=== PATIENT | female | born 1930 | race Caucasian/White ===

== ENCOUNTER 2017-02-07 17:15 | Emergency (ER) | payer MEDICARE, BC ==
[~2017-02-07] VITALS: Ht 172.7 cm; Wt 74.8 kg
--- NOTE | 2017-02-07 17:35 | NUR ---
DR FARIAS AT THE BEDSIDE FOR EVAL AND EXAM.
[2017-02-07 18:09] LABS: BASOPHILS # (AUTO) 0.2 K/uL (0.0-8.0); BASOPHILS % (AUTO) 1.2 % (0.0-2.0); EOSINOPHILS % (AUTO) 0.3 % (0.0-7.0); HEMATOCRIT 40.2 % (37-47); HEMOGLOBIN 13.3 G/DL (12.0-16.0); LYMPHOCYTES % (AUTO) 6.4 % (20.5-51.5); MEAN CORPUSCULAR HEMOGLOBIN 30.8 UUG (27.0-31.0); MEAN CORPUSCULAR HGB CONC 33 g/dL (32.0-37.0); MEAN CORPUSCULAR VOLUME 93.2 FL (81.0-99.0); MONOCYTES # (AUTO) 1.4 K/UL (0.1-1.30); MONOCYTES % (AUTO) 8.6 % (0.0-11.0); NEUTROPHILS # (AUTO) 13.5 K/UL (1.8-8.9); NEUTROPHILS % (AUTO) 83.5 % (38.5-71.5); PLATELET COUNT (AUTO) 170 K/UL (150-450); RED BLOOD CELL COUNT(AUTO) 4.31 MIL/UL (4.2-5.4); WHITE BLOOD COUNT (AUTO) 16.1 K/UL (4.0-11.2)
[2017-02-07 18:19] LABS: CARBON DIOXIDE 28 mmol/L (21-32); CHLORIDE 103 mmol/L (98-107); CREATININE 1.2 mg/dL (0.6-1.3); GLUCOSE 101 mg/dL (74-106); POTASSIUM 3.8 mmol/L (3.5-5.1); UREA NITROGEN, BLOOD 18 mg/dL (7-18)
[2017-02-07 18:36] LABS: ALANINE AMINOTRANSFERASE 15 U/L (14-59); ALKALINE PHOSPHATASE 68 U/L (50-136); ASPARTATE AMINOTRANSFERASE 18 U/L (15-37); BAND % (MANUAL) 3 % (0-10); BILIRUBIN,DIRECT 0.3 mg/dL (0.0-0.2); BILIRUBIN,TOTAL 1.4 mg/dL (0.2-1.0); LYMPHOCYTES % (MANUAL) 5 % (20-40); MONOCYTES % (MANUAL) 4 % (2-10); NEUTROPHILS % (MANUAL) 88 % (42-75); TOTAL PROTEIN, SERUM 7.1 g/dL (6.4-8.2)
[2017-02-07] MEDS ORDERED: LEVO125T8 PO (18:41)
[2017-02-07] MEDS ORDERED: ATEN25TA PO (18:41)
[2017-02-07] MEDS ORDERED: RIVA15TA2 PO (18:41)
--- NOTE | 2017-02-07 19:00 | NUR ---
DR CASTILLO INTO RE EVAL PATIENT. PATIENT REQUESTING TO BE D/C'ED HOME
--- NOTE | 2017-02-07 19:27 | NUR ---
IV removed. Catheter intact and site benign. Pressure and 4x4 gauze applied to site. No bleeding noted.
--- NOTE | 2017-02-07 19:42 | NUR ---
Patient discharged to home in stable conditon WITH SON TAKING PATIENT HOME. Written and verbal after care instructions given. Patient verbalizes understanding of instructions. WALKED OUT OF ER WITH NO DISTRESS NOTED
[2017-02-07 19:43] VITALS: BP 125/70
== END 2017-02-07 19:45 | disposition home or self-care (01) ==
LOC: ER 17:16
DX: I48.2 Chronic atrial fibrillation (principal); J02.9 Acute pharyngitis, unspecified; R94.31 Abnormal electrocardiogram [ECG] [EKG]; I10 Essential (primary) hypertension; Z79.01 Long term (current) use of anticoagulants; E03.9 Hypothyroidism, unspecified
CPT/HCPCS: 36415; 70030-TC; 71010; 83605; 85025; 85730; 87040; 87400; 93005; A4663; J2930; J7030

== ENCOUNTER 2017-02-10 09:22 | Inpatient (IN) | payer MEDICARE, BC ==
[~2017-02-10] VITALS: Ht 174 cm; Wt 83.5 kg
[~2017-02-10 09:22] MED LIST: ATEN25TA PO; LEVO125T8 PO; RIVA15TA2 PO
[2017-02-10] MEDS ORDERED: IV NORMAL SALINE 500 ML BAG IV ONE (09:45)
[2017-02-10] MEDS ORDERED: PRED20TA PO (09:46)
[2017-02-10] MEDS ORDERED: LOSARTAN POTASSIUM PO (09:46)
[2017-02-10 10:11] LABS: BASOPHILS % (AUTO) 0.1 % (0.0-2.0); EOSINOPHILS % (AUTO) 0.1 % (0.0-7.0); HEMATOCRIT 41.1 % (31.2-41.9); HEMOGLOBIN 13.9 g/dL (10.9-14.3); LYMPHOCYTES # (AUTO) 0.7 K/uL (20.0-40.0); LYMPHOCYTES % (AUTO) 4.2 % (20.5-51.5); MEAN CORPUSCULAR HEMOGLOBIN 31.4 uug (24.7-32.8); MEAN CORPUSCULAR HGB CONC 34 g/dL (32.3-35.6); MEAN CORPUSCULAR VOLUME 93.1 fL (75.5-95.3); MONOCYTES # (AUTO) 1.6 K/uL (2.0-10.0); MONOCYTES % (AUTO) 9.9 % (0.0-11.0); NEUTROPHILS # (AUTO) 13.8 K/uL (1.8-8.9); NEUTROPHILS % (AUTO) 85.7 % (38.5-71.5); PLATELET COUNT (AUTO) 251 K/uL (179-408); RED BLOOD CELL COUNT(AUTO) 4.42 MIL/uL (3.63-4.92); WHITE BLOOD COUNT (AUTO) 16.1 K/uL (3.8-11.8)
[2017-02-10 10:18] LABS: CARBON DIOXIDE 28 mmol/L (21-32); CHLORIDE 105 mmol/L (98-107); CREATININE 1.1 mg/dL (0.6-1.3); GLUCOSE 97 mg/dL (74-106); POTASSIUM 3.9 mmol/L (3.5-5.1); UREA NITROGEN, BLOOD 22 mg/dL (7-18)
[2017-02-10 10:36] LABS: ALANINE AMINOTRANSFERASE 29 U/L (14-59); ALKALINE PHOSPHATASE 77 U/L (50-136); ASPARTATE AMINOTRANSFERASE 22 U/L (15-37); BILIRUBIN,DIRECT 0.2 mg/dL (0.0-0.2)
[2017-02-10] MEDS ORDERED: CEFTRIAXONE 1 G in IV DEXTROSE 5% 50 ML IV ONE (10:45)
[2017-02-10] MEDS ORDERED: AZITHROMYCIN IV 500 MG in IV DEXTROSE 5% 250 ML IV ONE (10:45)
--- NOTE | 2017-02-10 11:39 | NUR ---
Patient is eating snacks with good appetite. ALLEY Luo is at bedside evaluating the patient. Patient's daughter is at bedside as well.
--- NOTE | 2017-02-10 11:45 | NUR ---
Patient is tolerating 100ml/hr rate better for IV azithromycin instead of 250ml/hr (c/o increasing generalized aches and weakness earlier)
[2017-02-10 11:46] LABS: BAND % (MANUAL) 6 % (0-10); LYMPHOCYTES % (MANUAL) 3 % (20-40); MONOCYTES % (MANUAL) 9 % (2-10); NEUTROPHILS % (MANUAL) 82 % (42-75)
[2017-02-10] MEDS ORDERED: LEVOFLOXACIN 750MG/D5W 750 MG in PREMIXED 1 EACH IV SCH (12:00)
[2017-02-10] MEDS ORDERED: ALBUTEROL SULFATE 2.5 MG/3 ML NEBU NEB PRN (12:00)
[2017-02-10] MEDS ORDERED: ACETAMINOPHEN 325 MG TABLET PO PRN (12:00)
[2017-02-10] MEDS ORDERED: IPRATROPIUM BROMIDE 0.5 MG/2.5 ML NEBU NEB PRN (12:00)
[2017-02-10] MEDS ORDERED: MORPHINE SULFATE 2 MG/1 ML DISP.SYRIN IV PRN (12:00)
[2017-02-10] MEDS ORDERED: ONDANSETRON 4 MG/2 ML VIAL IV PRN (12:00)
[2017-02-10 12:30] VITALS: BP 94/51
--- NOTE | 2017-02-10 12:30 | NUR ---
Received from ER per odin this 87yo female with the chief complaint of shortness of breath and coughing x 1 week with the diagnosis of Acute Bronchitis, Intractable cough, pneumonia. Transferred to bed comfortably. Routine admission care rendered. Awake, alert, oriented x 4, able to move all extremities on purpose, ambulated to the bathroom using a cane with assistance. Saline lock to left AC, Zithromax IV infusing, continued.
[2017-02-10] MEDS: FAMOTIDINE 20 MG TABLET PO SCH (13:43)
[2017-02-10] MEDS: methylPREDNISolone SOD SUCC 40 MG/ML VIAL IV SCH ×3 (13:43→21:14)
[2017-02-10] MEDS: GUAIFENESIN/CODEINE 5 ML LIQUID UDC PO PRN ×2 (13:43→21:29)
--- NOTE | 2017-02-10 14:00 | NUR ---
With bouts of cough. Specimen for sputum culture sent to lab. Robitussin AC given as ordered. Called RT for HHN treatment
[2017-02-10] MEDS: ALBUTEROL SULFATE 2.5 MG/3 ML NEBU NEB SCH ×2 (15:21→19:26)
[2017-02-10] MEDS: IPRATROPIUM BROMIDE 0.5 MG/2.5 ML NEBU NEB SCH ×2 (15:21→19:27)
[2017-02-10 15:51] VITALS: BP 111/52
--- NOTE | 2017-02-10 16:00 | NUR ---
Feeling better after HHN. Specimen for influenza sent to lab.
[2017-02-10] MEDS: RIVAROXABAN 15 MG TABLET PO SCH (17:26)
--- NOTE | 2017-02-10 18:05 | NUR ---
With fair appetite. With fair airway, comfortable
--- NOTE | 2017-02-10 19:30 | NUR ---
RECEIVED SHIFT REPORT FROM PREVIOUS SHIFT NURSE. PATIENT IN STABLE CONDITION. NO SIGNS OF DISTRESS. RECEIVING BREATHING TREATMENT FROM RT. PATIENT DOES NOT EXPRESS ANY PAIN EXPERIENCED. SAFETY AND COMFORT PROVIDED TO PATIENT.
[2017-02-10] MEDS: ATENOLOL 25 MG TABLET PO SCH (21:14)
--- NOTE | 2017-02-10 21:29 | NUR ---
ROBUTUSSIN 10 ML GIVEN TO PATIENT AT 2128.
[2017-02-10] MEDS ORDERED: GUAIFENESIN/CODEINE 5 ML LIQUID UDC ONE (21:42)
--- NOTE | 2017-02-10 21:51 | NUR ---
There was an new order acknowledged for Robutussin 5 mL. Non-adminisrtation because I already administered the 10 mL dose at 2100.
[2017-02-10] MEDS: ZOLPIDEM 5 MG TABLET PO PRN (22:23)
--- NOTE | 2017-02-10 22:23 | NUR ---
TIRSO GIVEN TO PATIENT AT 5843.
[2017-02-11] MEDS: methylPREDNISolone SOD SUCC 40 MG/ML VIAL IV SCH ×2 (05:47→20:50)
--- NOTE | 2017-02-11 06:16 | NUR ---
PATIENT SLEPT WELL THROUGH THE NIGHT WITH NO SIGNS OF DISTRESS. PATIENT IN STABLE CONDITION. PATIENT ROUNDINGS IMPLEMENTED. SAFETY AND COMFORT PROVIDED TO PATIENT.
[2017-02-11] MEDS ORDERED: LEVOTHYROXINE SODIUM 125 MCG TABLET PO SCH ×2 (07:00→09:00)
[2017-02-11 07:03] LABS: ALANINE AMINOTRANSFERASE 31 U/L (14-59); ALKALINE PHOSPHATASE 73 U/L (50-136); ASPARTATE AMINOTRANSFERASE 19 U/L (15-37); BILIRUBIN,TOTAL 0.4 mg/dL (0.2-1.0); CARBON DIOXIDE 24 mmol/L (21-32); CHLORIDE 107 mmol/L (98-107); CHOLESTEROL 126 mg/dL (<200); GLUCOSE 150 mg/dL (74-106); HDL CHOLESTEROL 42 mg/dL (40-60); MAGNESIUM 2.1 mg/dL (1.8-2.4); PHOSPHOROUS 3.5 mg/dL (2.5-4.9); POTASSIUM 4.3 mmol/L (3.5-5.1); TRIGLYCERIDES 53 MG/DL (30-150); UREA NITROGEN, BLOOD 18 mg/dL (7-18)
[2017-02-11 07:06] LABS: THYROID STIMULATING HORMONE 0.059 mIU/mL (0.358-3.740)
[2017-02-11 07:22] LABS: HEMATOCRIT 35.9 % (37-47); HEMOGLOBIN 12.3 G/DL (12.0-16.0); LYMPHOCYTES # (AUTO) 0.7 K/UL (0.8-4.8); LYMPHOCYTES % (AUTO) 4.2 % (20.5-51.5); MEAN CORPUSCULAR HEMOGLOBIN 31.6 UUG (27.0-31.0); MEAN CORPUSCULAR HGB CONC 34 g/dL (32.0-37.0); MEAN CORPUSCULAR VOLUME 92.7 FL (81.0-99.0); MONOCYTES # (AUTO) 0.4 K/UL (0.1-1.30); MONOCYTES % (AUTO) 2.8 % (0.0-11.0); NEUTROPHILS # (AUTO) 14.8 K/UL (1.8-8.9); WHITE BLOOD COUNT (AUTO) 15.9 K/UL (4.0-11.2)
[2017-02-11 07:38] LABS: RED BLOOD CELL COUNT(AUTO) 3.87 MIL/UL (4.2-5.4)
[2017-02-11 07:39] LABS: PLATELET COUNT (AUTO) 234 K/UL (150-450)
[2017-02-11] MEDS: IPRATROPIUM BROMIDE 0.5 MG/2.5 ML NEBU NEB SCH ×4 (07:56→18:59)
[2017-02-11] MEDS: ALBUTEROL SULFATE 2.5 MG/3 ML NEBU NEB SCH ×4 (07:56→18:59)
[2017-02-11] MEDS: FAMOTIDINE 20 MG TABLET PO SCH (08:36)
--- NOTE | 2017-02-11 08:45 | NUR ---
AWAKE, SITTING UP IN BED NO S/S OF DISTRESS AT THIS TIME
[2017-02-11] MEDS ORDERED: RIVAROXABAN 15 MG TABLET PO SCH (09:00)
--- NOTE | 2017-02-11 10:00 | NUR ---
PATIENT SITTING UP NOTED PRODUCTIVE COUGH; THICK GREEN CONSISTENCY; WILL CONTINUE TO MONITOR
[2017-02-11] MEDS: AZITHROMYCIN IV 500 MG in IV DEXTROSE 5% 250 ML IV SCH (11:00)
--- NOTE | 2017-02-11 11:30 | NUR ---
PATIENT REQUESTING TO GO OUTSIDE AND EAT AWARE OF PATIENT STATUS AND LOW GRADE TEMP, CURRICULUM SPECIALIST SPOKE WITH PATIENT AND DAUGHTER ABOUT HOSPITAL POLICY ABOUT GOING OUTSIDE, BOTH VERBALIZE UNDERSTANDING AND DENY QUESTIONS
[2017-02-11 11:45] LABS: BAND % (MANUAL) 5 % (0-10); LYMPHOCYTES % (MANUAL) 7 % (20-40); MONOCYTES % (MANUAL) 1 % (2-10); NEUTROPHILS % (MANUAL) 87 % (42-75)
[2017-02-11 11:48] VITALS: BP 118/60
--- NOTE | 2017-02-11 12:04 | NUR ---
NEB TX IN PROGRESS
--- NOTE | 2017-02-11 13:00 | NUR ---
sitting on edge of bed eating lunch, intermittent productive cough, patient reports green sputum
[2017-02-11] MEDS: CEFTRIAXONE 1 G in IV DEXTROSE 5% 50 ML IV SCH (13:40)
--- NOTE | 2017-02-11 14:00 | NUR ---
dada awake ambulating from tx room to nursing station and back, states "i am going hiome tomorrow, no more of this", patient requests to continue ambulating before going back to room, enc patient to sit up in chair.
--- NOTE | 2017-02-11 15:00 | NUR ---
awake, reviewed plan of care no needs stated at this time
[2017-02-11 15:22] VITALS: BP 100/64
--- NOTE | 2017-02-11 16:00 | NUR ---
patient oob amublating denies any needs at this time, no s/s of distress
--- NOTE | 2017-02-11 17:00 | NUR ---
patient awake talking with daughter at bedside, cough remains intermittent, less productive per patient.
--- NOTE | 2017-02-11 18:10 | NUR ---
patient finished 75% of dinner tray, talking with daughter at bedside, no needs stated at this time
--- NOTE | 2017-02-11 19:30 | NUR ---
REPORT OFF TO ON COMING RN
--- NOTE | 2017-02-11 19:30 | NUR ---
PATIENT ALERT ORIENTED, NO SOB NO CHEST PAIN NOTED, NO COMPLAIN OF PAIN AT THIS TIME, CONT ON HHN TX FOR COUGHING AND CONGESTION/PNA , AFEBRILE, ASSISTED WITH TOILETING, CALL LIGHT WITHIN REACH.
[2017-02-11] MEDS: RIVAROXABAN 15 MG TABLET PO SCH (19:49)
--- NOTE | 2017-02-11 19:50 | NUR ---
PATIENT ALERT ORIENTED, NO SOB NO CHEST PAIN, WITH EPISODE OF MOIST COUGH, WILL GIVE COUGH MEDS ORDERED, PATIENT ON HHN TX FOR COUGH AND CONGESTION, KEPT HOB ELEVATED, OXYGEN SAT WNL, CONT TO MONITOR. NO COUGHING NO CHOKING NOTED WHEN DRINK FLUIDS, CALL LIGHT WITHIN REACH.
[2017-02-11 20:00] VITALS: BP 113/52
[2017-02-11] MEDS: GUAIFENESIN/CODEINE 5 ML LIQUID UDC PO PRN (20:50)
[2017-02-11] MEDS: ATENOLOL 25 MG TABLET PO SCH (20:52)
[2017-02-11] MEDS: ZOLPIDEM 5 MG TABLET PO PRN (22:04)
[2017-02-12 04:03] VITALS: BP 135/71
--- NOTE | 2017-02-12 05:44 | NUR ---
PATIENT SLEPT MOST OF THE NIGHT, NO SOB NO CHEST PAIN, RHYTHM SINUS RHYTHM, ASSISTED WITH TOILETING, COUGHING ESPISODES SUBSIDED AT THIS TIME. AFEBRILE, CALL LIGHT WITHIN REACH.
[2017-02-12 06:55] LABS: ALANINE AMINOTRANSFERASE 91 U/L (14-59); ALKALINE PHOSPHATASE 78 U/L (50-136); ASPARTATE AMINOTRANSFERASE 69 U/L (15-37); BILIRUBIN,TOTAL 0.3 mg/dL (0.2-1.0); CARBON DIOXIDE 28 mmol/L (21-32); CHLORIDE 106 mmol/L (98-107); CREATININE 1.1 mg/dL (0.6-1.3); GLUCOSE 134 mg/dL (74-106); MAGNESIUM 2.2 mg/dL (1.8-2.4); PHOSPHOROUS 3.4 mg/dL (2.5-4.9); POTASSIUM 4.5 mmol/L (3.5-5.1); TOTAL PROTEIN, SERUM 6.8 g/dL (6.4-8.2); UREA NITROGEN, BLOOD 23 mg/dL (7-18)
[2017-02-12] MEDS ORDERED: LEVOTHYROXINE SODIUM 112 MCG TABLET PO SCH (07:00)
--- NOTE | 2017-02-12 07:15 | NUR ---
Received patient asleep, lying on bed with head of bed elevated above 30 degrees. Easily aroused, responsive to verbal and tactile stimuli. All needs attended and anticipated. call light placed within reach. Will continue to monitor.
[2017-02-12] MEDS: IPRATROPIUM BROMIDE 0.5 MG/2.5 ML NEBU NEB SCH ×2 (07:18→11:40)
[2017-02-12] MEDS: ALBUTEROL SULFATE 2.5 MG/3 ML NEBU NEB SCH ×2 (07:18→11:40)
[2017-02-12 07:24] LABS: BASOPHILS # (AUTO) 0.1 K/uL (0.0-8.0); BASOPHILS % (AUTO) 0.3 % (0.0-2.0); HEMATOCRIT 36.1 % (37-47); HEMOGLOBIN 12.6 G/DL (12.0-16.0); LYMPHOCYTES # (AUTO) 0.7 K/UL (0.8-4.8); LYMPHOCYTES % (AUTO) 3.5 % (20.5-51.5); MEAN CORPUSCULAR HEMOGLOBIN 32.1 UUG (27.0-31.0); MEAN CORPUSCULAR HGB CONC 35 g/dL (32.0-37.0); MEAN CORPUSCULAR VOLUME 92.2 FL (81.0-99.0); MONOCYTES # (AUTO) 0.4 K/UL (0.1-1.30); NEUTROPHILS # (AUTO) 18.2 K/UL (1.8-8.9); NEUTROPHILS % (AUTO) 94.2 % (38.5-71.5); PLATELET COUNT (AUTO) 260 K/UL (150-450); RED BLOOD CELL COUNT(AUTO) 3.92 MIL/UL (4.2-5.4); WHITE BLOOD COUNT (AUTO) 19.4 K/UL (4.0-11.2)
[2017-02-12] MEDS: FAMOTIDINE 20 MG TABLET PO SCH (08:22)
[2017-02-12] MEDS: methylPREDNISolone SOD SUCC 40 MG/ML VIAL IV SCH (08:22)
--- NOTE | 2017-02-12 08:30 | NUR ---
Received patient's CBC and CMP results. WBC: 19.4, afebrile. Reported to Mary Macdonald NP with no new orders. Patient informed. Will continue to closely monitor the patient.
[2017-02-12] MEDS: CEFTRIAXONE 1 G in IV DEXTROSE 5% 50 ML IV SCH (10:23)
[2017-02-12 11:26] VITALS: BP 123/74
[2017-02-12] MEDS: AZITHROMYCIN IV 500 MG in IV DEXTROSE 5% 250 ML IV SCH (11:27)
[2017-02-12] MEDS ORDERED: PRED20TA PO ×2 (13:17)
[2017-02-12] MEDS ORDERED: PRED10TA PO (13:17)
[2017-02-12] MEDS ORDERED: PRED-170 PO (13:17)
[2017-02-12] MEDS ORDERED: Levothyroxine Sodium PO (13:17)
[2017-02-12] MEDS ORDERED: CEFU250T85 PO (13:17)
[2017-02-12] MEDS ORDERED: GUAI5SYR4 PO (13:17)
--- NOTE | 2017-02-12 14:00 | NUR ---
Received new orders from Mary Esquivel NP that patient may be discharged home today. patient made aware and was very appreciative of the care. daughter Mayda at bedside informed.
[2017-02-12] MEDS ORDERED: ALBU2.5V7 NEB (14:03)
[2017-02-12] MEDS ORDERED: IPRA0.2S6 NEB (14:03)
--- NOTE | 2017-02-12 15:00 | NUR ---
Patient was discharged home with her daughter, Mayda Ureña in stable condition, no SOB, distress or discomforts noted. All belongings are complete no missing items. Health teachings were given and provided by pharmacist, patient verbalized her understanding. Accompanied patient and daughter to private vehicle.
[2017-02-12] MEDS ORDERED: predniSONE 20 MG TABLET PO SCH (18:00)
[2017-02-12] MEDS ORDERED: methylPREDNISolone SOD SUCC 40 MG/ML VIAL IV SCH (21:00)
[2017-02-12] MEDS ORDERED: CEFUROXIME AXETIL 250 MG TABLET PO SCH (21:00)
[2017-02-14] MEDS ORDERED: predniSONE 20 MG TABLET PO SCH (08:00)
[2017-02-15] MEDS ORDERED: predniSONE 10 MG TABLET PO SCH (08:00)
[2017-02-16] MEDS ORDERED: predniSONE 5 MG TABLET PO SCH (08:00)
== END 2017-02-12 15:00 | disposition home or self-care (01) | DRG 871 ==
LOC: ER 09:22 → MED 11:41
PROVIDERS: ADMIT Internal Medicine; ATTEND Internal Medicine
DX: A41.9 Sepsis, unspecified organism (principal); J18.9 Pneumonia, unspecified organism; E44.0 Moderate protein-calorie malnutrition; I48.2 Chronic atrial fibrillation; D68.9 Coagulation defect, unspecified; I11.9 Hypertensive heart disease without heart failure; I08.1 Rheumatic disorders of both mitral and tricuspid valves; Z79.01 Long term (current) use of anticoagulants; J20.9 Acute bronchitis, unspecified; Z96.641 Presence of right artificial hip joint; Z96.653 Presence of artificial knee joint, bilateral; E03.9 Hypothyroidism, unspecified; I70.0 Atherosclerosis of aorta; D72.829 Elevated white blood cell count, unspecified; T38.0X5A Adverse effect of glucocorticoids and synthetic analogues, initial encounter; Y92.89 Other specified places as the place of occurrence of the external cause; Z68.27 Body mass index [BMI] 27.0-27.9, adult
CPT/HCPCS: 36415; 70030-TC; 71010; 83605; 83735; 84100; 84443; 85025; 85730; 87040; 87070; 87400; 93005; 93307; 94640; 94664; A4663; J0456; J0696; J2920; J3590; J7040; J7060